=== PATIENT | female | born 1945 | race Caucasian/White ===

== ENCOUNTER 2024-08-03 13:46 | Emergency (ER) | payer MEDICARE ==
--- OUTSIDE RECORDS SUMMARY | 2024-08-03 13:51 | XMS REPORT | Continuity of Care Document ---
Author Name Unknown Address [address] [facility] [address] [place] [address] [facility] Address [address] [facility] [address] [place] [address] Care Team Providers Care Irrigation Foreman Name Role Phone Em Jones Attending Clinician Unavailable Loren Mejias Attending Clinician Unavailable Miller_S_AH Attending Clinician Unavailable Mireya-Mbayo_A_AH Attending Clinician Unavailable Miller_S_AH Admitting Clinician Unavailable Mireya-Mbayo_A_AH Admitting Clinician Unavailable Payers Payer Name Policy Type Policy Number Effective Date Expirati on Date Source [facility] (MEDICARE REPLACEMENT HMO) [id number] 00:00:00 [place] [id number] 2020 00:00:00 [facility]PLAC[facility]/ADVAN TAGE - HMO) [id number] 2019 00:00:00 Problems Condition Name Condition Details Condition Category Status Onset Date Resolution Date Last Treatment Date Treating Clinician Comments Source 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 Type 2 diabetes mellitus with hyperglyce corine, without long-term current use of insulin Problem [facility] [id number] 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 with other complicati ons Problem [facility] [id number] Restless legs syndrome (RLS) Problem [facility] Chronic kidney disease stage 3B (disorder) Stage 3b chronic kidney disease Problem [facility] [id number] BMI 38.0-38.9, adult Problem [facility] Flu vaccine needed Flu vaccine need Problem [facility] [id number] +5th digit eff 08/18/20*CK D (chronic kidney disease) stage 3, GFR 30-59 ml/min Problem [facility] Hypothyroi dism Hypothyroi dism Problem [facility] Screening for osteoporos is Screening for osteoporos is Problem [facility] Obesity Obesity Problem [facility] Asthma Asthma Problem [facility] Hypertensi on Hypertensi on Problem [facility] COPD - Chronic obstructiv e pulmonary disease COPD (chronic obstructiv e pulmonary disease) Problem [facility] Influenza vaccinatio n Influenza vaccinatio n administer ed at current visit Problem [facility] Renal insufficie ncy syndrome Renal insufficie ncy syndrome Problem [facility] [id number] Seasonal allergic rhinitis due to pollen Problem [facility] [id number] PAD (periphera l artery disease) Problem [facility] Allergic arthritis Allergic arthritis Problem [facility] Hyperlipid emia Hyperlipid emia Problem [facility] [id number] Mild intermitte nt asthma without complicati on Problem [facility] [id number] Needs flu shot Problem [facility] [id number] Paresthesi a of skin Problem [facility] [id number] Mixed hyperlipid emia Problem [facility] Allergies, Adverse Reactions, Alerts Allergy Name Allergy Type Status Severity Reaction(s) Onset Date Inactive Date Treating Clinician Comments Source 463 Drug allergy Active Unknown [facility] Social History Social Habit Start Date Stop Date Quantity Comments Source History of Tobacco Use [facility] Sex Assigned At [facility] Smoking Status Start Date Stop Date Source Never Smoker [facility] Medications Ordered Medication Name Filled Medication Name Start Date Stop Date Current Medication? Ordering Clinician Indication Dosage Frequency Signature (SIG) Comments Components Source Montelukast Sodium 10 MG Montelukast Sodium 10 MG 1- 00:00: 00 No 1{table t} QD Montelukas t Sodium 10 MG rOPINIRole HCl 0.5 MG rOPINIRole HCl 0.5 MG - 00:00: 00 No QD rOPINIRole HCl 0.5 MG Aspirin EC 81 MG Aspirin EC 81 MG No 1{table t} QD Aspirin EC 81 MG Triamcinolo ne Acetonide 0.1 % Triamcinolo ne Acetonide 0.1 % No 1{appli cation_ to_affe cted_ar ea} BID Triamcinol one Acetonide 0.1 % Albuterol Sulfate (2.5 MG/3ML) 0.083% Albuterol Sulfate (2.5 MG/3ML) 0.083% No 3{ml} QID Albuterol Sulfate (2.5 MG/3ML) 0.083% Rosuvastati n Calcium 5 MG Rosuvastati n Calcium 5 MG No 1{table t} Rosuvastat in Calcium 5 MG Xopenex HFA 45 MCG/ACT Xopenex HFA 45 MCG/ACT No 2{puff_ as_need ed} 6xD Xopenex HFA 45 MCG/ACT Telmisartan 40 MG Telmisartan 40 MG No 1{table t} QD Telmisarta n 40 MG Synthroid 88 MCG Synthroid 88 MCG No QD Synthroid 88 MCG Nystatin 850644 UNIT/GM Nystatin 008099 UNIT/GM No Nystatin 662803 UNIT/GM Comp Air Compressor Nebulizer - Comp Air Compressor Nebulizer - No Comp Air Compressor Nebulizer - Symbicort 160-4.5 MCG/ACT Symbicort 160-4.5 MCG/ACT No 2{puffs } BID Symbicort 160-4.5 MCG/ACT Immunizations Ordered Immunization Name Filled Immunization Name Date Status Comments Source FLUZONE HIGH DOSE OVER 65 FLUZONE HIGH DOSE OVER 65 2022-10-04 09:31:00 [facility] FLUZONE HIGH DOSE OVER 65 FLUZONE HIGH DOSE OVER 65 2022-10-04 09:31:00 Completed [facility] Moderna COVID-19 Vaccine (Low Dose Booster) Moderna COVID-19 Vaccine (Low Dose Booster) 2021-11-01 10:28:00 Completed [facility] Moderna COVID-19 Vaccine (Low Dose Booster) Moderna COVID-19 Vaccine (Low Dose Booster) 2021-11-01 10:28:00 Completed [facility] Moderna COVID-19 Vaccine (Low Dose Booster) Moderna COVID-19 Vaccine (Low Dose Booster) 2021-11-01 10:28:00 Completed [facility] Moderna COVID-19 Vaccine (Low Dose Booster) Moderna COVID-19 Vaccine (Low Dose Booster) 2021-11-01 10:28:00 Completed [facility] Moderna COVID-19 Vaccine (Low Dose Booster) Moderna COVID-19 Vaccine (Low Dose Booster) 2021-11-01 10:28:00 Completed [facility] Moderna COVID-19 Vaccine (Low Dose Booster) Moderna COVID-19 Vaccine (Low Dose Booster) 2021-11-01 10:28:00 Completed [facility] Moderna COVID-19 Vaccine (Low Dose Booster) Moderna COVID-19 Vaccine (Low Dose Booster) 2021-11-01 10:28:00 Completed [facility] Moderna COVID-19 Vaccine (Low Dose Booster) Moderna COVID-19 Vaccine (Low Dose Booster) 2021-11-01 10:28:00 Completed [facility] Moderna COVID-19 Vaccine (Low Dose Booster) Moderna COVID-19 Vaccine (Low Dose Booster) 2021-11-01 10:28:00 Completed [facility] Moderna COVID-19 Vaccine (Low Dose Booster) Moderna COVID-19 Vaccine (Low Dose Booster) 2021-11-01 10:28:00 Completed [facility] FLUZONE HIGH DOSE OVER 65 FLUZONE HIGH DOSE OVER 65 2021-10-20 13:26:00 Completed [facility] FLUZONE HIGH DOSE OVER 65 FLUZONE HIGH DOSE OVER 65 2021-10-20 13:26:00 Completed [facility] FLUZONE HIGH DOSE OVER 65 FLUZONE HIGH DOSE OVER 65 2021-10-20 13:26:00 Completed [facility] FLUZONE HIGH DOSE OVER 65 FLUZONE HIGH DOSE OVER 65 2021-10-20 13:26:00 Completed [facility] FLUZONE HIGH DOSE OVER 65 FLUZONE HIGH DOSE OVER 65 2021-10-20 13:26:00 Completed [facility] FLUZONE HIGH DOSE OVER 65 FLUZONE HIGH DOSE OVER 65 2021-10-20 13:26:00 Completed [facility] FLUZONE HIGH DOSE OVER 65 FLUZONE HIGH DOSE OVER 65 2021-10-20 13:26:00 Completed [facility] FLUZONE HIGH DOSE OVER 65 FLUZONE HIGH DOSE OVER 65 2021-10-20 13:26:00 Completed [facility] FLUZONE HIGH DOSE OVER 65 FLUZONE HIGH DOSE OVER 65 2021-10-20 13:26:00 Completed [facility] FLUZONE HIGH DOSE OVER 65 FLUZONE HIGH DOSE OVER 65 2021-10-20 13:26:00 Completed [facility] FLUZONE HIGH DOSE OVER 65 FLUZONE HIGH DOSE OVER 65 2021-10-20 13:26:00 Completed [facility] FLUZONE HIGH DOSE OVER 65 FLUZONE HIGH DOSE OVER 65 2021-10-20 13:26:00 Completed [facility] COVID-19 Vaccine (Sonja) COVID-19 Vaccine (Sonja) 2021-01-27 15:05:00 Completed [facility] COVID-19 Vaccine (Sonja) COVID-19 Vaccine (Sonja) 2021-01-27 15:05:00 Completed [facility] COVID-19 Vaccine (Sonja) COVID-19 Vaccine (Sonja) 2021-01-27 15:05:00 Completed [facility] COVID-19 Vaccine (Sonja) COVID-19 Vaccine (Sonja) 2021-01-27 15:05:00 Completed [facility] COVID-19 Vaccine (Sonja) COVID-19 Vaccine (Sonja) 2021-01-27 15:05:00 Completed [facility] COVID-19 Vaccine (Sonja) COVID-19 Vaccine (Sonja) 2021-01-27 15:05:00 Completed [facility] COVID-19 Vaccine (Sonja) COVID-19 Vaccine (Sonja) 2021-01-27 15:05:00 Completed [facility] COVID-19 Vaccine (Sonja) COVID-19 Vaccine (Sonja) 2021-01-27 15:05:00 Completed [facility] COVID-19 Vaccine (Sonja) COVID-19 Vaccine (Sonja) 2021-01-27 15:05:00 Completed [facility] COVID-19 Vaccine (Sonja) COVID-19 Vaccine (Sonja) 2021-01-27 15:05:00 Completed [facility] COVID-19 Vaccine (Sonja) COVID-19 Vaccine (Sonja) 2021-01-27 15:05:00 Completed [facility] COVID-19 Vaccine (Sonja) COVID-19 Vaccine (Sonja) 2021-01-27 15:05:00 Completed [facility] FluAD FluAD 2020-09-08 10:07:00 Completed [facility] FluAD FluAD 2020-09-08 10:07:00 Completed [facility] FluAD FluAD 2020-09-08 10:07:00 Completed [facility] FluAD FluAD 2020-09-08 10:07:00 Completed [facility] FluAD FluAD 2020-09-08 10:07:00 Completed [facility] FluAD FluAD 2020-09-08 10:07:00 Completed [facility] FluAD FluAD 2020-09-08 10:07:00 Completed [facility] FluAD FluAD 2020-09-08 10:07:00 Completed [facility] FluAD FluAD 2020-09-08 10:07:00 Completed [facility] FluAD FluAD 2020-09-08 10:07:00 Completed [facility] FluAD FluAD 2020-09-08 10:07:00 Completed [facility] FluAD FluAD 2020-09-08 10:07:00 Completed [facility] COVID-19 Vaccine (Sonja) COVID-19 Vaccine (Sonja) Unknown Completed [facility] FluAD FluAD Unknown Completed [facility] FLUZONE HIGH DOSE OVER 65 FLUZONE HIGH DOSE OVER 65 Unknown Completed [facility] FLUZONE HIGH DOSE OVER 65 FLUZONE HIGH DOSE OVER 65 Unknown Completed [facility] Fluad (aIIV4) - SDS - 0.5mL Fluad (aIIV4) - SDS - 0.5mL Unknown Completed [facility] MODERNA COVID-19 VACCINE (LOW DOSE BOOSTER) MODERNA COVID-19 VACCINE (LOW DOSE BOOSTER) Unknown Completed [facility] COVID-19 Vaccine (Sonja) COVID-19 Vaccine (Sonja) Unknown Completed [facility] FluAD FluAD Unknown Completed [facility] FLUZONE HIGH DOSE OVER 65 FLUZONE HIGH DOSE OVER 65 Unknown Completed [facility] FLUZONE HIGH DOSE OVER 65 FLUZONE HIGH DOSE OVER 65 Unknown Completed [facility] Moderna COVID-19 Vaccine (Low Dose Booster) Moderna COVID-19 Vaccine (Low Dose Booster) Unknown Completed [facility] COVID-19 Vaccine (Sonja) COVID-19 Vaccine (Sonja) Unknown Completed [facility] FluAD FluAD Unknown Completed [facility] FLUZONE HIGH DOSE OVER 65 FLUZONE HIGH DOSE OVER 65 Unknown Completed [facility] FLUZONE HIGH DOSE OVER 65 FLUZONE HIGH DOSE OVER 65 Unknown Completed [facility] Moderna COVID-19 Vaccine (Low Dose Booster) Moderna COVID-19 Vaccine (Low Dose Booster) Unknown Completed [facility] COVID-19 Vaccine (Sonja) COVID-19 Vaccine (Sonja) Unknown Completed [facility] FluAD FluAD Unknown Completed [facility] FLUZONE HIGH DOSE OVER 65 FLUZONE HIGH DOSE OVER 65 Unknown Completed [facility] FLUZONE HIGH DOSE OVER 65 FLUZONE HIGH DOSE OVER 65 Unknown Completed [facility] FluAD Quad SD FluAD Quad SD Unknown Completed [facility] Moderna COVID-19 Vaccine (Low Dose Booster) Moderna COVID-19 Vaccine (Low Dose Booster) Unknown Completed [facility] COVID-19 Vaccine (Sonja) COVID-19 Vaccine (Sonja) Unknown Completed [facility] FluAD FluAD Unknown Completed [facility] FLUZONE HIGH DOSE OVER 65 FLUZONE HIGH DOSE OVER 65 Unknown Completed [facility] FLUZONE HIGH DOSE OVER 65 FLUZONE HIGH DOSE OVER 65 Unknown Completed [facility] FluAD Quad SD FluAD Quad SD Unknown Completed [facility] Moderna COVID-19 Vaccine (Low Dose Booster) Moderna COVID-19 Vaccine (Low Dose Booster) Unknown Completed [facility] COVID-19 Vaccine (Sonja) COVID-19 Vaccine (Sonja) Unknown Completed [facility] FluAD FluAD Unknown Completed [facility] FLUZONE HIGH DOSE OVER 65 FLUZONE HIGH DOSE OVER 65 Unknown Completed [facility] FLUZONE HIGH DOSE OVER 65 FLUZONE HIGH DOSE OVER 65 Unknown Completed [facility] FluAD Quad SD FluAD Quad SD Unknown Completed [facility] Moderna COVID-19 Vaccine (Low Dose Booster) Moderna COVID-19 Vaccine (Low Dose Booster) Unknown Completed [facility] COVID-19 Vaccine (Sonja) COVID-19 Vaccine (Sonja) Unknown Completed [facility] FluAD FluAD Unknown Completed [facility] FLUZONE HIGH DOSE OVER 65 FLUZONE HIGH DOSE OVER 65 Unknown Completed [facility] FLUZONE HIGH DOSE OVER 65 FLUZONE HIGH DOSE OVER 65 Unknown Completed [facility] Fluad (aIIV4) - SDS - 0.5mL Fluad (aIIV4) - SDS - 0.5mL Unknown Completed [facility] Moderna COVID-19 Vaccine (Low Dose Booster) Moderna COVID-19 Vaccine (Low Dose Booster) Unknown Completed [facility] COVID-19 Vaccine (Sonja) COVID-19 Vaccine (Sonja) Unknown Completed [facility] FluAD FluAD Unknown Completed [facility] FLUZONE HIGH DOSE OVER 65 FLUZONE HIGH DOSE OVER 65 Unknown Completed [facility] FLUZONE HIGH DOSE OVER 65 FLUZONE HIGH DOSE OVER 65 Unknown Completed [facility] Fluad (aIIV4) - SDS - 0.5mL Fluad (aIIV4) - SDS - 0.5mL Unknown Completed [facility] Moderna COVID-19 Vaccine (Low Dose Booster) Moderna COVID-19 Vaccine (Low Dose Booster) Unknown Completed [facility] COVID-19 Vaccine (Sonja) COVID-19 Vaccine (Sonja) Unknown Completed [facility] FluAD FluAD Unknown Completed [facility] FLUZONE HIGH DOSE OVER 65 FLUZONE HIGH DOSE OVER 65 Unknown Completed [facility] FLUZONE HIGH DOSE OVER 65 FLUZONE HIGH DOSE OVER 65 Unknown Completed [facility] Fluad (aIIV4) - SDS - 0.5mL Fluad (aIIV4) - SDS - 0.5mL Unknown Completed [facility] Moderna COVID-19 Vaccine (Low Dose Booster) Moderna COVID-19 Vaccine (Low Dose Booster) Unknown Completed [facility] COVID-19 Vaccine (Sonja) COVID-19 Vaccine (Sonja) Unknown Completed [facility] FluAD FluAD Unknown Completed [facility] FLUZONE HIGH DOSE OVER 65 FLUZONE HIGH DOSE OVER 65 Unknown Completed [facility] FLUZONE HIGH DOSE OVER 65 FLUZONE HIGH DOSE OVER 65 Unknown Completed [facility] Fluad (aIIV4) - SDS - 0.5mL Fluad (aIIV4) - SDS - 0.5mL Unknown Completed [facility] Moderna COVID-19 Vaccine (Low Dose Booster) Moderna COVID-19 Vaccine (Low Dose Booster) Unknown Completed [facility] COVID-19 Vaccine (Sonja) COVID-19 Vaccine (Sonja) Unknown Completed [facility] FluAD FluAD Unknown Completed [facility] FLUZONE HIGH DOSE OVER 65 FLUZONE HIGH DOSE OVER 65 Unknown Completed [facility] FLUZONE HIGH DOSE OVER 65 FLUZONE HIGH DOSE OVER 65 Unknown Completed [facility] Fluad (aIIV4) - SDS - 0.5mL Fluad (aIIV4) - SDS - 0.5mL Unknown Completed [facility] Moderna COVID-19 Vaccine (Low Dose Booster) Moderna COVID-19 Vaccine (Low Dose Booster) Unknown Completed [facility] COVID-19 Vaccine (Sonja) COVID-19 Vaccine (Sonja) Unknown Completed [facility] FluAD FluAD Unknown Completed [facility] FLUZONE HIGH DOSE OVER 65 FLUZONE HIGH DOSE OVER 65 Unknown Completed [facility] FLUZONE HIGH DOSE OVER 65 FLUZONE HIGH DOSE OVER 65 Unknown Completed [facility] Fluad (aIIV4) - SDS - 0.5mL Fluad (aIIV4) - SDS - 0.5mL Unknown Completed [facility] MODERNA COVID-19 VACCINE (LOW DOSE BOOSTER) MODERNA COVID-19 VACCINE (LOW DOSE BOOSTER) Unknown Completed [facility] COVID-19 Vaccine (Sonja) COVID-19 Vaccine (Sonja) Unknown Completed [facility] FluAD FluAD Unknown Completed [facility] FLUZONE HIGH DOSE OVER 65 FLUZONE HIGH DOSE OVER 65 Unknown Completed [facility] FLUZONE HIGH DOSE OVER 65 FLUZONE HIGH DOSE OVER 65 Unknown Completed [facility] Fluad (aIIV4) - SDS - 0.5mL Fluad (aIIV4) - SDS - 0.5mL Unknown Completed [facility] MODERNA COVID-19 VACCINE (LOW DOSE BOOSTER) MODERNA COVID-19 VACCINE (LOW DOSE BOOSTER) Unknown Completed [facility] COVID-19 Vaccine (Sonja) COVID-19 Vaccine (Sonja) Unknown Completed [facility] FluAD FluAD Unknown Completed [facility] FLUZONE HIGH DOSE OVER 65 FLUZONE HIGH DOSE OVER 65 Unknown Completed [facility] FLUZONE HIGH DOSE OVER 65 FLUZONE HIGH DOSE OVER 65 Unknown Completed [facility] Fluad (aIIV4) - SDS - 0.5mL Fluad (aIIV4) - SDS - 0.5mL Unknown Completed [facility] MODERNA COVID-19 VACCINE (LOW DOSE BOOSTER) MODERNA COVID-19 VACCINE (LOW DOSE BOOSTER) Unknown Completed [facility] COVID-19 Vaccine (Sonja) COVID-19 Vaccine (Sonja) Unknown Completed [facility] FluAD FluAD Unknown Completed [facility] FLUZONE HIGH DOSE OVER 65 FLUZONE HIGH DOSE OVER 65 Unknown Completed [facility] FLUZONE HIGH DOSE OVER 65 FLUZONE HIGH DOSE OVER 65 Unknown Completed [facility] Fluad (aIIV4) - SDS - 0.5mL Fluad (aIIV4) - SDS - 0.5mL Unknown Completed [facility] MODERNA COVID-19 VACCINE (LOW DOSE BOOSTER) MODERNA COVID-19 VACCINE (LOW DOSE BOOSTER) Unknown Completed [facility] COVID-19 Vaccine (Sonja) COVID-19 Vaccine (Sonja) Unknown Completed [facility] FluAD FluAD Unknown Completed [facility] FLUZONE HIGH DOSE OVER 65 FLUZONE HIGH DOSE OVER 65 Unknown Completed [facility] FLUZONE HIGH DOSE OVER 65 FLUZONE HIGH DOSE OVER 65 Unknown Completed [facility] Fluad (aIIV4) - SDS - 0.5mL Fluad (aIIV4) - SDS - 0.5mL Unknown Completed [facility] MODERNA COVID-19 VACCINE (LOW DOSE BOOSTER) MODERNA COVID-19 VACCINE (LOW DOSE BOOSTER) Unknown Completed [facility] COVID-19 Vaccine (Sonja) COVID-19 Vaccine (Sonja) Unknown Completed [facility] FluAD FluAD Unknown Completed [facility] FLUZONE HIGH DOSE OVER 65 FLUZONE HIGH DOSE OVER 65 Unknown Completed [facility] FLUZONE HIGH DOSE OVER 65 FLUZONE HIGH DOSE OVER 65 Unknown Completed [facility] Fluad (aIIV4) - SDS - 0.5mL Fluad (aIIV4) - SDS - 0.5mL Unknown Completed [facility] MODERNA COVID-19 VACCINE (LOW DOSE BOOSTER) MODERNA COVID-19 VACCINE (LOW DOSE BOOSTER) Unknown Completed [facility] Vital Signs Vital Name Observation Time Observation Value Comments S ource height 2024-07-22 09:40:00 60.5 [in_i] Comm on [facility] weight 2024-07-22 09:40:00 156 [lb_av] Comm on [facility] temperature 2024-07-22 09:40:00 97.8 [degF] Com mon [facility] bmi 2024-07-22 09:40:00 29.96 kg/m2 Comm on [facility] oximetry 2024-07-22 09:40:00 98 % Commo n [facility] respiratory rate 2024-07-22 09:40:00 16 /min Common [facility] blood pressure systolic 2024-07-22 09:40:00 128 mm[facility]Hg[facility] pressure diastolic 2024-07-22 09:40:00 64 mm[Hg] [facility] height 2024-06-01 08:20:00 60.5 [in_i] Comm on [facility] weight 2024-06-01 08:20:00 158.6 [lb_av] Co mmon [facility] temperature 2024-06-01 08:20:00 97.2 [degF] Com mon [facility] bmi 2024-06-01 08:20:00 30.46 kg/m2 Comm on [facility] oximetry 2024-06-01 08:20:00 96 % Commo n [facility] respiratory rate 2024-06-01 08:20:00 16 /min [facility] blood pressure systolic 2024-06-01 08:20:00 124 mm[Hg] [facility] blood pressure diastolic 2024-06-01 08:20:00 58 mm[Hg] Common [facility] height 2024-04-08 09:00:00 60.5 [in_i] Comm on [facility] weight 2024-04-08 09:00:00 156 [lb_av] Comm on [facility] temperature 2024-04-08 09:00:00 97.6 [degF] Com mon [facility] bmi 2024-04-08 09:00:00 29.96 kg/m2 Comm on [facility] oximetry 2024-04-08 09:00:00 98 % Commo n [facility] respiratory rate 2024-04-08 09:00:00 16 /min [facility] blood pressure systolic 2024-04-08 09:00:00 130 mm[Hg] [facility] blood pressure diastolic 2024-04-08 09:00:00 72 mm[Hg] Common [facility] height 2024-02-18 08:20:00 60.5 [in_i] Comm on [facility] weight 2024-02-18 08:20:00 154 [lb_av] Comm on [facility] temperature 2024-02-18 08:20:00 97.6 [degF] Com mon [facility] bmi 2024-02-18 08:20:00 29.58 kg/m2 Comm on [facility] oximetry 2024-02-18 08:20:00 96 % Commo n [facility] respiratory rate 2024-02-18 08:20:00 16 /min [facility] blood pressure systolic 2024-02-18 08:20:00 136 mm[Hg] Common [facility] blood pressure diastolic 2024-02-18 08:20:00 74 mm[Hg] Common [facility] height 2024-02-11 09:20:00 60.5 [in_i] Comm on [facility] weight 2024-02-11 09:20:00 160 [lb_av] Comm on [facility] temperature 2024-02-11 09:20:00 97.2 [degF] Com mon [facility] bmi 2024-02-11 09:20:00 30.73 kg/m2 Comm on [facility] oximetry 2024-02-11 09:20:00 96 % Commo n [facility] respiratory rate 2024-02-11 09:20:00 17 /min Common [facility] blood pressure systolic 2024-02-11 09:20:00 144 mm[Hg] [facility] diastolic 2024-02-11 09:20:00 78 mm[Hg] Common [facility] height 2024-01-09 09:00:00 60.5 [in_i] Comm on [facility] weight 2024-01-09 09:00:00 159 [lb_av] Comm on [facility] temperature 2024-01-09 09:00:00 97.1 [degF] Com [facility] bmi 2024-01-09 09:00:00 30.54 kg/m2 Comm on [facility] oximetry 2024-01-09 09:00:00 98 % Commo n [facility] respiratory rate 2024-01-09 09:00:00 16 /min [facility] blood pressure systolic 2024-01-09 09:00:00 137 mm[Hg] [facility] blood pressure diastolic 2024-01-09 09:00:00 74 mm[Hg] [facility] height 2023-11-19 09:00:00 55 [in_i] Commo n [facility] weight 2023-11-19 09:00:00 156.2 [lb_av] Co mmon [facility] temperature 2023-11-19 09:00:00 97.1 [degF] Com [facility] bmi 2023-11-19 09:00:00 36.3 kg/m2 Commo n [facility] oximetry 2023-11-19 09:00:00 97 % Commo n [facility] respiratory rate 2023-11-19 09:00:00 16 /min Common [facility] blood pressure systolic 2023-11-19 09:00:00 130 mm[Hg] Common [facility] blood pressure diastolic 2023-11-19 09:00:00 72 mm[Hg] Common [facility] height 2023-11-19 09:00:00 55 [in_i] Commo n [facility] weight 2023-11-19 09:00:00 156.2 [lb_av] Co mmon [facility] temperature 2023-11-19 09:00:00 97.1 [degF] Com mon [facility] bmi 2023-11-19 09:00:00 36.3 kg/m2 Commo n [facility] oximetry 2023-11-19 09:00:00 97 % Commo n [facility] respiratory rate 2023-11-19 09:00:00 16 /min Common [facility] blood pressure systolic 2023-11-19 09:00:00 130 mm[Hg] [facility] blood pressure diastolic 2023-11-19 09:00:00 72 mm[Hg] Common [facility] height 2023-09-20 09:00:00 55 [in_i] Commo n [facility] weight 2023-09-20 09:00:00 150 [lb_av] Comm on [facility] temperature 2023-09-20 09:00:00 97.2 [degF] Com [facility] bmi 2023-09-20 09:00:00 34.86 kg/m2 Comm on [facility] oximetry 2023-09-20 09:00:00 96 % Commo n [facility] respiratory rate 2023-09-20 09:00:00 16 /min [facility] blood pressure systolic 2023-09-20 09:00:00 126 mm[Hg] [facility] blood pressure diastolic 2023-09-20 09:00:00 82 mm[Hg] [facility] height 2023-06-21 09:00:00 55 [in_i] Commo n [facility] weight 2023-06-21 09:00:00 152.2 [lb_av] Co mmon [facility] temperature 2023-06-21 09:00:00 97.2 [degF] Com [facility] bmi 2023-06-21 09:00:00 35.37 kg/m2 Comm on [facility] oximetry 2023-06-21 09:00:00 98 % Commo n [facility] respiratory rate 2023-06-21 09:00:00 16 /min Common [facility] blood pressure systolic 2023-06-21 09:00:00 121 mm[Hg] [facility] blood pressure diastolic 2023-06-21 09:00:00 73 mm[Hg] [facility] height 2023-03-20 09:20:00 55 [in_i] Commo n [facility] weight 2023-03-20 09:20:00 161 [lb_av] Comm on [facility] temperature 2023-03-20 09:20:00 97.3 [degF] Com [facility] bmi 2023-03-20 09:20:00 37.42 kg/m2 Comm on [facility] oximetry 2023-03-20 09:20:00 98 % Commo n [facility] respiratory rate 2023-03-20 09:20:00 16 /min Common [facility] blood pressure systolic 2023-03-20 09:20:00 134 mm[Hg] [facility] blood pressure diastolic 2023-03-20 09:20:00 80 mm[Hg] [facility] height 2023-02-11 08:20:00 55 [in_i] Commo n [facility] weight 2023-02-11 08:20:00 165.2 [lb_av] Co mmon [facility] temperature 2023-02-11 08:20:00 98.2 [degF] Com [facility] bmi 2023-02-11 08:20:00 38.39 kg/m2 Comm on [facility] oximetry 2023-02-11 08:20:00 97 % Commo n [facility] respiratory rate 2023-02-11 08:20:00 16 /min Common [facility] blood pressure systolic 2023-02-11 08:20:00 138 mm[Hg] Common [facility] blood pressure diastolic 2023-02-11 08:20:00 75 mm[Hg] [facility] height 2023-02-11 08:40:00 55 [in_i] Commo n [facility] weight 2023-02-11 08:40:00 165.2 [lb_av] Co mmon [facility] temperature 2023-02-11 08:40:00 98.1 [degF] Com mon [facility] bmi 2023-02-11 08:40:00 38.39 kg/m2 Comm on [facility] oximetry 2023-02-11 08:40:00 97 % Commo n [facility] respiratory rate 2023-02-11 08:40:00 16 /min Common [facility] blood pressure systolic 2023-02-11 08:40:00 138 mm[Hg] [facility] blood pressure diastolic 2023-02-11 08:40:00 75 mm[Hg] [facility] height 2022-10-30 09:40:00 55 [in_i] Commo n [facility] weight 2022-10-30 09:40:00 166.6 [lb_av] Co mmon [facility] temperature 2022-10-30 09:40:00 97.1 [degF] Com mon [facility] bmi 2022-10-30 09:40:00 38.72 kg/m2 Comm on [facility] oximetry 2022-10-30 09:40:00 96 % Commo n [facility] respiratory rate 2022-10-30 09:40:00 16 /min [facility] blood pressure systolic 2022-10-30 09:40:00 137 mm[Hg] [facility] blood pressure diastolic 2022-10-30 09:40:00 65 mm[Hg] [facility] height 2022-07-27 08:40:00 55 [in_i] Commo n [facility] weight 2022-07-27 08:40:00 164.4 [lb_av] Co mmon [facility] temperature 2022-07-27 08:40:00 96.4 [degF] Com mon [facility] bmi 2022-07-27 08:40:00 38.21 kg/m2 Comm on [facility] oximetry 2022-07-27 08:40:00 98 % Commo n [facility] respiratory rate 2022-07-27 08:40:00 16 /min [facility] blood pressure systolic 2022-07-27 08:40:00 137 mm[Hg] [facility] blood pressure diastolic 2022-07-27 08:40:00 67 mm[Hg] [facility] height 2022-04-26 08:40:00 55 [in_i] Commo n [facility] weight 2022-04-26 08:40:00 164 [lb_av] Comm on [facility] temperature 2022-04-26 08:40:00 97.8 [degF] Com mon [facility] bmi 2022-04-26 08:40:00 38.11 kg/m2 Comm on [facility] oximetry 2022-04-26 08:40:00 97 % Commo n [facility] respiratory rate 2022-04-26 08:40:00 20 /min Common [facility] blood pressure systolic 2022-04-26 08:40:00 124 mm[Hg] [facility] blood pressure diastolic 2022-04-26 08:40:00 74 mm[Hg] [facility] height 2022-01-22 08:40:00 55 [in_i] Commo n [facility] weight 2022-01-22 08:40:00 164.4 [lb_av] Co on [facility] temperature 2022-01-22 08:40:00 97.4 [degF] Com [facility] bmi 2022-01-22 08:40:00 38.21 kg/m2 Comm on [facility] oximetry 2022-01-22 08:40:00 96 % Commo n [facility] respiratory rate 2022-01-22 08:40:00 18 /min Common [facility] blood pressure systolic 2022-01-22 08:40:00 121 mm[Hg] [facility] blood pressure diastolic 2022-01-22 08:40:00 76 mm[Hg] Common [facility] height 2021-10-20 13:00:00 55.00 [in_i] Com [facility] weight 2021-10-20 13:00:00 160.0 [lb_av] Co on [facility] temperature 2021-10-20 13:00:00 97.0 [degF] Com [facility] bmi 2021-10-20 13:00:00 37.18 kg/m2 Comm on [facility] oximetry 2021-10-20 13:00:00 99 % Commo n [facility] respiratory rate 2021-10-20 13:00:00 20 /min Common [facility] blood pressure systolic 2021-10-20 13:00:00 110 mm[Hg] Common [facility] blood pressure diastolic 2021-10-20 13:00:00 70 mm[Hg] Common [facility] height 2021-10-20 13:40:00 55 [in_i] Commo n [facility] weight 2021-10-20 13:40:00 160 [lb_av] Comm on [facility] temperature 2021-10-20 13:40:00 97 [degF] Comm on [facility] bmi 2021-10-20 13:40:00 37.18 kg/m2 Comm on [facility] oximetry 2021-10-20 13:40:00 99 % Commo n [facility] blood pressure systolic 2021-10-20 13:40:00 110 mm[Hg] Common [facility] blood pressure diastolic 2021-10-20 13:40:00 70 mm[Hg] [facility] Encounters Start Date/Time End Date/Time Encounter Type Admission Type Attending [facility] Care Facility Care Department Encounter ID Source 2024-07-21 09:23:00 Outpatient JonesEm STLMLC STLMLC [id number] [facility] 2024-05-28 14:34:00 Outpatient Jones Em STLMLC STLMLC [id number] [facility] 2024-04-06 09:29:00 Outpatient Jones Em STLMLC STLMLC [id number] [facility] 2024-02-17 13:45:00 Outpatient Jones Em STLMLC STLMLC [id number] [facility] 2024-01-07 08:29:00 Outpatient Jones Em STLMLC STLMLC [id number] [facility] 2023-11-19 08:28:00 Outpatient Jones, Em STLMLC STLMLC [id number] [facility] 2023-09-18 10:47:00 Outpatient Jones, Em STLMLC STLMLC [id number] [facility] 2023-06-20 09:17:00 Outpatient Jones, Em STLMLC STLMLC [id number] [facility] 2023-02-07 08:52:00 Outpatient Jones, Em STLMLC STLMLC [id number] [facility] 2023-02-01 09:01:01 Outpatient Em Jones STLMLC STLMLC [id number] [facility] 2022-12-25 14:13:00 Outpatient Em Jones STLMLC STLMLC [id number] [facility] 2022-10-26 08:29:00 Outpatient Mejias, Na STLMLC STLMLC [id number] [facility] 2022-07-25 08:54:00 Outpatient Mejias, Na STLMLC STLMLC [id number] [facility] 2022-05-31 14:07:00 Outpatient Mejias, Na STLMLC STLMLC [id number] [facility] 2022-04-24 13:35:00 Outpatient Mejias, Na STLMLC STLMLC [id number] [facility] 2022-01-19 09:48:01 Outpatient Mejias, Na STLMLC STLMLC [id number] [facility] 2021-12-13 14:25:12 Outpatient Mejias, Na STLMLC STLMLC [id number] [facility] 2021-12-13 13:49:08 Outpatient Mejias, Na STLMLC STLMLC [id number] [facility] 2021-12-13 13:17:09 Outpatient Mejias, Na STLMLC STLMLC [id number] [facility] 2021-12-13 12:40:47 Outpatient Mejias, Na STLMLC STLMLC [id number] [facility] 2021-12-13 12:39:46 Outpatient Mejias, Na STLMLC STLMLC [id number] [facility] 2021-12-13 12:26:18 Outpatient Mejias, Na STLMLC STLMLC [id number] [facility] 2021-12-13 12:25:12 Outpatient Mejias, Na STLMLC STLMLC [id number] [facility] 2021-12-13 12:14:04 Outpatient Mejias, Na STLMLC STLMLC [id number] [facility] 2021-12-13 12:09:50 Outpatient Mejias, Na STLMLC STLMLC [id number] [facility] 2021-12-13 11:47:11 Outpatient Mejias, Na STLMLC STLMLC [id number] [facility] 2021-12-13 11:27:12 Outpatient Mejias, Na STLMLC STLMLC [id number] [facility] 2021-12-13 11:16:33 Outpatient Mejias, Na STLMLC STLMLC [id number] [facility] 2024-07-22 00:00:00 2024-07-22 00:00:00 OFFICE VISIT ESTAB PT LEVEL 4 STLMLC STLMLC [id number] [facility] 2024-07-16 00:00:00 2024-07-16 00:00:00 (TEL) STLMLC STLMLC [id number] [facility] 2024-06-01 00:00:00 2024-06-01 00:00:00 OFFICE VISIT ESTAB PT LEVEL 4 STLMLC STLMLC [id number] [facility] 2024-04-08 00:00:00 2024-04-08 00:00:00 OFFICE VISIT ESTAB PT LEVEL 4 STLMLC STLMLC [id number] [facility] 2024-03-24 00:00:00 2024-03-24 00:00:00 (TEL) STLMLC STLMLC [id number] [facility] 2024-02-21 00:00:00 2024-02-21 00:00:00 (TEL) STLMLC STLMLC [id number] [facility] 2024-02-18 00:00:00 2024-02-18 00:00:00 OFFICE VISIT ESTAB PT LEVEL 3 STLMLC STLMLC [id number] [facility] 2024-02-11 00:00:00 2024-02-11 00:00:00 OFFICE VISIT ESTAB PT LEVEL 3 STLMLC STLMLC [id number] [facility] 2024-02-11 00:00:00 2024-02-11 00:00:00 (TEL) STLMLC STLMLC [id number] [facility] 2024-01-09 00:00:00 2024-01-09 00:00:00 OFFICE VISIT ESTAB PT LEVEL 4 STLMLC STLMLC [id number] [facility] 2023-11-19 00:00:00 2023-11-19 00:00:00 OFFICE VISIT ESTAB PT LEVEL 4 STLMLC STLMLC [id number] [facility] 2023-11-19 00:00:00 2023-11-19 00:00:00 SUB ANNUAL [facility] VISIT STLMLC STLMLC [id number] [facility] 2023-09-20 00:00:00 2023-09-20 00:00:00 OFFICE VISIT ESTAB PT LEVEL 4 STLMLC STLMLC [id number] [facility] 2023-07-04 00:00:00 2023-07-04 00:00:00 (TEL) STLMLC STLMLC [id number] [facility] 2023-06-21 00:00:00 2023-06-21 00:00:00 OFFICE VISIT ESTAB PT LEVEL 4 STLMLC STLMLC [id number] [facility] 2023-05-07 00:00:00 2023-05-07 00:00:00 (TEL) STLMLC STLMLC [id number] [facility] 2023-03-22 00:00:00 2023-03-22 00:00:00 Outpatient DMG DM [id number] [facility] 2023-03-20 00:00:00 2023-03-20 00:00:00 OFFICE VISIT ESTAB PT LEVEL 4 STLMLC STLMLC [id number] [facility] 2023-02-27 00:00:00 2023-02-27 00:00:00 (TEL) STLMLC STLMLC [id number] [facility] 2023-02-11 00:00:00 2023-02-11 00:00:00 OFFICE VISIT ESTAB PT LEVEL 4 STLMLC STLMLC [id number] [facility] 2023-02-11 00:00:00 2023-02-11 00:00:00 SUB ANNUAL [facility] VISIT STLMLC STLMLC [id number] [facility] 2022-10-30 00:00:00 2022-10-30 00:00:00 OFFICE VISIT EST PT LEVEL 3 STLMLC STLMLC [id number] [facility] 2022-10-04 00:00:00 2022-10-04 00:00:00 (INJ) Injection STLMLC STLMLC [id number] [facility] 2022-09-19 00:00:00 2022-09-19 00:00:00 (TEL) STLMLC STLMLC [id number] [facility] 2022-09-18 00:00:00 2022-09-18 00:00:00 (TEL) STLMLC STLMLC [id number] [facility] 2022-09-17 00:00:00 2022-09-17 00:00:00 Outpatient DMG DM [id number] [facility] 2022-07-27 00:00:00 2022-07-27 00:00:00 OFFICE VISIT ESTAB PT LEVEL 4 STLMLC STLMLC [id number] [facility] 2022-04-26 00:00:00 2022-04-26 00:00:00 OFFICE VISIT ESTAB PT LEVEL 4 STLMLC STLMLC [id number] [facility] 2022-04-24 00:00:00 2022-04-24 00:00:00 (TEL) STLMLC STLMLC [id number] [facility] 2022-01-22 00:00:00 2022-01-22 00:00:00 OFFICE VISIT ESTAB PT LEVEL 4 STLMLC STLMLC [id number] [facility] 2021-12-06 00:00:00 2021-12-06 00:00:00 (TEL) STLMLC STLMLC [id number] [facility] 2021-11-01 00:00:00 2021-11-01 00:00:00 (COVID Inj) COVID Injection STLMLC STLMLC [id number] [facility] 2021-10-20 00:00:00 2021-10-20 00:00:00 SUB ANNUAL [facility] VISIT STLMLC STLMLC [id number] [facility] 2021-10-20 00:00:00 2021-10-20 00:00:00 OFFICE VISIT EST PT LEVEL 3 STLMLC STLMLC [id number] [facility] 2021-05-12 00:00:00 2021-05-12 00:00:00 Outpatient STLMLC STLMLC [id number] [facility] 2021-05-09 01:31:00 2021-05-09 01:31:00 Outpatient Miller_S_AH VFP VFP [id number] [facility] 2021-05-09 00:00:00 2021-05-09 00:00:00 Outpatient STLMLC STLMLC [id number] [facility] 2021-05-03 03:39:00 2021-05-03 03:39:00 Outpatient Mireya-Mbayo _A_AH VFP VFP [id number] [facility] 2021-04-06 09:56:00 2021-04-06 09:56:00 Outpatient Mireya-Mbayo _A_AH VFP VFP [id number] [facility] 2021-02-07 00:00:00 2021-02-07 00:00:00 Outpatient STLMLC STLMLC [id number] [facility] 2021-02-03 00:00:00 2021-02-03 00:00:00 Outpatient STLMLC STLMLC [id number] [facility] 2021-01-27 00:00:00 2021-01-27 00:00:00 Outpatient STLMLC STLMLC [id number] [facility] 2020-12-28 00:00:00 2020-12-28 00:00:00 Outpatient [facility]LMLC [facility]LMLC [id number] [facility] 2020-12-25 00:00:00 2020-12-25 00:00:00 Outpatient [facility]MLC [facility]LMLC [id number] [facility] 2020-12-15 00:00:00 2020-12-15 00:00:00 Outpatient STLMLC STLMLC [id number] [facility] 2020-11-04 00:00:00 2020-11-04 00:00:00 Outpatient STLMLC STLMLC [id number] [facility] 2020-09-08 00:00:00 2020-09-08 00:00:00 Outpatient STLMLC STLMLC [id number] [facility] 2020-08-09 00:00:00 2020-08-09 00:00:00 Outpatient STLMLC STLMLC [id number] [facility] 2020-05-09 08:00:00 2020-05-09 08:00:00 [address] [facility] [address] [facility] [id number] [facility] 2020-02-19 02:51:00 2020-02-19 02:51:00 Outpatient Mireya-Wm _A_AH VFP VFP [id number] [facility] 2020-02-04 13:20:00 2020-02-04 13:20:00 [address] [facility] [address] [facility] [id number] [facility] 2019-10-01 10:01:00 2019-10-01 10:01:00 [facility] [address] [facility] [id number] [facility] 2019-05-18 10:20:00 2019-05-18 10:20:00 [facility] [address] [facility] [place] [facility] [id number] [facility] 2019-01-29 10:00:00 2019-01-29 10:00:00 [facility] [address] [facility] [place] [facility] [id number] [facility] 2019-01-01 08:30:00 2019-01-01 08:30:00 [facility] [address] [facility] [place] [facility] [id number] [facility] 2018-12-03 13:54:00 2018-12-03 13:54:00 [facility] [facility] [address] [facility] [id number] [facility] 2018-05-23 14:51:00 2018-05-23 14:51:00 [facility] [address] [facility] [id number] [facility] 2018-05-23 10:08:00 2018-05-23 10:08:00 [facility] [place] [facility] [id number] [facility] Results Test Description Test Time Test Comments Results Result Co mments Source HEMOGLOBIN [id number] 00:00:00* Test Item Value Reference Range Interpretation Comme nts NUCLEATED RBCS (test code = 10118-4) 0.0 /100 WBC'S See_Comment [Automated message] The system which generated this result transmitted reference range: 0.0 /100 WBC'S. The reference range was not used to interpret this result as normal/abnormal. ABSOLUTE EOSINOPHILS (test code = 41214-9) 0.40 K/UL See_Comment [Automated message] The system which generated this result transmitted reference range: 0.00-0.50 K/UL. The reference range was not used to interpret this result as normal/abnormal. ABSOLUTE LYMPHOCYTES (test code = 19561-6) 3.34 K/UL See_Comment [Automated message] The system which generated this result transmitted reference range: 1.00-4.00 K/UL. The reference range was not used to interpret this result as normal/abnormal. ABSOLUTE MONOCYTES (test code = 08259-1) 0.40 K/UL See_Comment [Automated message] The system which generated this result transmitted reference range: 0.20-1.00 K/UL. The reference range was not used to interpret this result as normal/abnormal. ABSOLUTE NEUTROPHILS (test code = 30886-1) 2.36 K/UL See_Comment [Automated message] The system which generated this result transmitted reference range: 1.50-7.50 K/UL. The reference range was not used to interpret this result as normal/abnormal. BASOPHILS (test code = 44187-8) 0.6 % EOSINOPHILS (test code = 83146-8) 6.1 % HEMATOCRIT (test code = 07064-4) 39.5 % See_Comment [Automated messa ge] The system which generated this result transmitted reference range: 34.0-45.0 %. The reference range was not used to interpret this result as normal/abnormal. HEMOGLOBIN (test code = 718-7) 12.6 G/DL See_Comment [Automated messa ge] The system which generated this result transmitted reference range: 11.5-15.5 G/DL. The reference range was not used to interpret this result as normal/abnormal. LYMPHOCYTES (test code = 63860-5) 51.0 % MCH (test code = 49019-6) 27.8 PG See_Comment [Automated messa ge] The system which generated this result transmitted reference range: 25.0-33.0 PG. The reference range was not used to interpret this result as normal/abnormal. MCHC (test code = 71671-0) 31.9 G/DL See_Comment [Automated messa ge] The system which generated this result transmitted reference range: 31.0-36.0 G/DL. The reference range was not used to interpret this result as normal/abnormal. MCV (test code = 18182-3) 87.0 fL See_Comment [Automated messa ge] The system which generated this result transmitted reference range: 80.0-99.0 fL. The reference range was not used to interpret this result as normal/abnormal. MONOCYTES (test code = 37094-4) 6.1 % NEUTROPHILS (test code = 92949-0) 36.0 % PLATELET COUNT (test code = 39392-0) 308 K/UL See_Comment [Automated messa ge] The system which generated this result transmitted reference range: 130-400 K/UL. The reference range was not used to interpret this result as normal/abnormal. RBC (test code = 10075-6) 4.54 M/UL See_Comment [Automated [employer]] The system which generated this result transmitted reference range: 3.80-5.40 M/UL. The reference range was not used to interpret this result as normal/abnormal. RDW (test code = 96287-7) 18.4 % See_Comment H [Automated [employer]] The system which generated this result transmitted reference range: 11.5-15.0 %. The reference range was not used to interpret this result as normal/abnormal. WBC (test code = 82005-4) 6.6 K/UL See_Comment [Automated [employer]] The system which generated this result transmitted reference range: 3.5-11.0 K/UL. The reference range was not used to interpret this result as normal/abnormal. CALC LDL CHOL (test code = 44907-5) 71 MG/DL See_Comment [Automated [employer]] The system which generated this result transmitted reference range: <100 MG/DL. The reference range was not used to interpret this result as normal/abnormal. CHOLESTEROL (test code = 2093-3) 151 MG/DL See_Comment [Automated [employer]] The system which generated this result transmitted reference range: <200 MG/DL. The reference range was not used to interpret this result as normal/abnormal. HDL CHOLESTEROL (test code = 2085-9) 54 MG/DL See_Comment [Automated [employer]] The system which generated this result transmitted reference range: >39 MG/DL. The reference range was not used to interpret this result as normal/abnormal. RISK RATIO LDL/HDL (test code = 95475-0) 1.31 RATIO See_Comment [Automated message] The system which generated this result transmitted reference range: <3.22 RATIO. The reference range was not used to interpret this result as normal/abnormal. TRIGLYCERIDES (test code = 2571-8) 179 MG/DL See_Comment H [Automated messa ge] The system which generated this result transmitted reference range: <150 MG/DL. The reference range was not used to interpret this result as normal/abnormal. ALBUMIN (test code = 1751-7) 4.6 G/DL See_Comment [Automated messa ge] The system which generated this result transmitted reference range: 3.5-5.2 G/DL. The reference range was not used to interpret this result as normal/abnormal. ALKALINE PHOSPHATASE (test code = 6768-6) 84 U/L See_Comment [Automated message] The system which generated this result transmitted reference range: 40-142 U/L. The reference range was not used to interpret this result as normal/abnormal. BILIRUBIN, TOTAL (test code = 1975-2) 0.4 MG/DL See_Comment [Automated messa ge] The system which generated this result transmitted reference range: <=1.2 MG/DL. The reference range was not used to interpret this result as normal/abnormal. BUN (test code = 3094-0) 25 MG/DL See_Comment H [Automated messa ge] The system which generated this result transmitted reference range: 8-23 MG/DL. The reference range was not used to interpret this result as normal/abnormal. CALCIUM (test code = 66863-1) 10.0 MG/DL See_Comment [Automated messa ge] The system which generated this result transmitted reference range: 8.5-10.5 MG/DL. The reference range was not used to interpret this result as normal/abnormal. CALC A/G RATIO (test code = 1759-0) 1.6 RATIO See_Comment [Automated messa ge] The system which generated this result transmitted reference range: 1.0-2.6 RATIO. The reference range was not used to interpret this result as normal/abnormal. CALC BUN/CREAT (test code = 3097-3) 18 RATIO See_Comment [Automated messa ge] The system which generated this result transmitted reference range: 6-28 RATIO. The reference range was not used to interpret this result as normal/abnormal. CALC GLOBULIN (test code = 74698-8) 2.8 G/DL See_Comment [Automated messa ge] The system which generated this result transmitted reference range: 1.9-3.7 G/DL. The reference range was not used to interpret this result as normal/abnormal. CARBON DIOXIDE (test code = 1963-8) 23 MEQ/L See_Comment [Automated messa ge] The system which generated this result transmitted reference range: 19-31 MEQ/L. The reference range was not used to interpret this result as normal/abnormal. CHLORIDE (test code = 5-0) 103 MEQ/L See_Comment [Automated messa ge] The system which generated this result transmitted reference range: 95-107 MEQ/L. The reference range was not used to interpret this result as normal/abnormal. CREATININE (test code = 2160-0) 1.37 MG/DL See_Comment H [Automated messa ge] The system which generated this result transmitted reference range: 0.60-1.30 MG/DL. The reference range was not used to interpret this result as normal/abnormal. eGFR (2020 CKD-EPI) (test code = 60907-3) 39 ML/MIN/1.73 See_Comment L [Automated message] The system which generated this result transmitted reference range: >60 ML/MIN/1.73. The reference range was not used to interpret this result as normal/abnormal. GLUCOSE (test code = 1558-6) 97 MG/DL See_Comment [Automated messa ge] The system which generated this result transmitted reference range: 70-99 MG/DL. The reference range was not used to interpret this result as normal/abnormal. POTASSIUM (test code = 2823-3) 6.0 MEQ/L See_Comment H [Automated messa ge] The system which generated this result transmitted reference range: 3.5-5.4 MEQ/L. The reference range was not used to interpret this result as normal/abnormal. PROTEIN, TOTAL (test code = 2885-2) 7.4 G/DL See_Comment [Automated messa ge] The system which generated this result transmitted reference range: 6.1-8.3 G/DL. The reference range was not used to interpret this result as normal/abnormal. AST (test code = 1920-8) 17 U/L See_Comment [Automated messa ge] The system which generated this result transmitted reference range: 9-40 U/L. The reference range was not used to interpret this result as normal/abnormal. ALT (test code = 1742-6) 14 U/L See_Comment [Automated messa ge] The system which generated this result transmitted reference range: 5-40 U/L. The reference range was not used to interpret this result as normal/abnormal. SODIUM (test code = 2951-2) 141 MEQ/L See_Comment [Automated messa ge] The system which generated this result transmitted reference range: 133-146 MEQ/L. The reference range was not used to interpret this result as normal/abnormal. FREE T4 (THYROXINE) (test code = 3024-7) 1.69 NG/DL See_Comment [Automated message] The system which generated this result transmitted reference range: 0.80-1.90 NG/DL. The reference range was not used to interpret this result as normal/abnormal. TSH, THIRD GENERATION (test code = 17684-3) 0.644 UIU/ML See_Comment [Automated message] The system which generated this result transmitted reference range: 0.400-4.100 UIU/ML. The reference range was not used to interpret this result as normal/abnormal. HEMOGLOBIN A1c (test code = 4548-4) 6.5 % See_Comment H [Automated messa ge] The system which generated this result transmitted reference range: 4.2-5.6 %. The reference range was not used to interpret this result as normal/abnormal. TSH + FREE T4 [id number] 00:00:00* Test Item Value Reference Range Interpretation Comme nts FREE T4 (THYROXINE) (test code = 3024-7) 1.56 NG/DL See_Comment [Automated message] The system which generated this result transmitted reference range: 0.80-1.90 NG/DL. The reference range was not used to interpret this result as normal/abnormal. TSH, THIRD GENERATION (test code = 52512-7) 1.010 UIU/ML See_Comment [Automated messa ge] The system which generated this result transmitted reference range: 0.400-4.100 UIU/ML. The reference range was not used to interpret this result as normal/abnormal. TSH + FREE T4 [id number] 00:00:00* Test Item Value Reference Range Interpretation Comme nts FREE T4 (THYROXINE) (test code = 3024-7) 0.97 NG/DL See_Comment [Automated message] The system which generated this result transmitted reference range: 0.80-1.90 NG/DL. The reference range was not used to interpret this result as normal/abnormal. TSH, THIRD GENERATION (test code = 22664-1) 15.200 UIU/ML See_Comment H [Automated messa ge] The system which generated this result transmitted reference range: 0.400-4.100 UIU/ML. The reference range was not used to interpret this result as normal/abnormal. CBC W/AUTO [id number] 00:00:00* Test Item Value Reference Range Interpretation Comme nts NUCLEATED RBCS (test code = 91971-6) 0.0 /100 WBC'S See_Comment [Automated [employer] ge] The system which generated this result transmitted reference range: 0.0 /100 WBC'S. The reference range was not used to interpret this result as normal/abnormal. ABSOLUTE EOSINOPHILS (test code = 12650-7) 0.61 K/UL See_Comment H [Automated [employer]] The system which generated this result transmitted reference range: 0.00-0.50 K/UL. The reference range was not used to interpret this result as normal/abnormal. ABSOLUTE LYMPHOCYTES (test code = 86611-4) 3.67 K/UL See_Comment [Automated [employer]] The system which generated this result transmitted reference range: 1.00-4.00 K/UL. The reference range was not used to interpret this result as normal/abnormal. ABSOLUTE MONOCYTES (test code = 60930-0) 0.48 K/UL See_Comment [Automated [employer]] The system which generated this result transmitted reference range: 0.20-1.00 K/UL. The reference range was not used to interpret this result as normal/abnormal. ABSOLUTE NEUTROPHILS (test code = 54397-3) 2.80 K/UL See_Comment [Automated [employer]] The system which generated this result transmitted reference range: 1.50-7.50 K/UL. The reference range was not used to interpret this result as normal/abnormal. BASOPHILS (test code = 68095-3) 0.5 % EOSINOPHILS (test code = 10224-0) 8.0 % HEMATOCRIT (test code = 99005-6) 38.3 % See_Comment [Automated [employer]] The system which generated this result transmitted reference range: 34.0-45.0 %. The reference range was not used to interpret this result as normal/abnormal. HEMOGLOBIN (test code = 718-7) 12.5 G/DL See_Comment [Automated messa ge] The system which generated this result transmitted reference range: 11.5-15.5 G/DL. The reference range was not used to interpret this result as normal/abnormal. LYMPHOCYTES (test code = 29672-5) 48.3 % MCH (test code = 02912-5) 31.2 PG See_Comment [Automated messa ge] The system which generated this result transmitted reference range: 25.0-33.0 PG. The reference range was not used to interpret this result as normal/abnormal. MCHC (test code = 09959-9) 32.6 G/DL See_Comment [Automated messa ge] The system which generated this result transmitted reference range: 31.0-36.0 G/DL. The reference range was not used to interpret this result as normal/abnormal. MCV (test code = 49162-8) 95.5 fL See_Comment [Automated messa ge] The system which generated this result transmitted reference range: 80.0-99.0 fL. The reference range was not used to interpret this result as normal/abnormal. MONOCYTES (test code = 90912-0) 6.3 % NEUTROPHILS (test code = 91959-9) 36.9 % PLATELET COUNT (test code = 13650-7) 309 K/UL See_Comment [Automated messa ge] The system which generated this result transmitted reference range: 130-400 K/UL. The reference range was not used to interpret this result as normal/abnormal. RBC (test code = 02458-6) 4.01 M/UL See_Comment [Automated messa ge] The system which generated this result transmitted reference range: 3.80-5.40 M/UL. The reference range was not used to interpret this result as normal/abnormal. RDW (test code = 35844-9) 16.3 % See_Comment H [Automated messa ge] The system which generated this result transmitted reference range: 11.5-15.0 %. The reference range was not used to interpret this result as normal/abnormal. WBC (test code = 29949-5) 7.6 K/UL See_Comment [Automated messa ge] The system which generated this result transmitted reference range: 3.5-11.0 K/UL. The reference range was not used to interpret this result as normal/abnormal. CBC W/AUTO [id number] 00:00:00* Test Item Value Reference Range Interpretation Comme nts NUCLEATED RBCS (test code = 38482-7) 0.0 /100 WBC'S See_Comment [Automated messa ge] The system which generated this result transmitted reference range: 0.0 /100 WBC'S. The reference range was not used to interpret this result as normal/abnormal. ABSOLUTE EOSINOPHILS (test code = 65751-2) 0.45 K/UL See_Comment [Automated messa ge] The system which generated this result transmitted reference range: 0.00-0.50 K/UL. The reference range was not used to interpret this result as normal/abnormal. ABSOLUTE LYMPHOCYTES (test code = 46025-8) 3.68 K/UL See_Comment [Automated messa ge] The system which generated this result transmitted reference range: 1.00-4.00 K/UL. The reference range was not used to interpret this result as normal/abnormal. ABSOLUTE MONOCYTES (test code = 73057-3) 0.52 K/UL See_Comment [Automated messa ge] The system which generated this result transmitted reference range: 0.20-1.00 K/UL. The reference range was not used to interpret this result as normal/abnormal. ABSOLUTE NEUTROPHILS (test code = 69063-2) 2.22 K/UL See_Comment [Automated messa ge] The system which generated this result transmitted reference range: 1.50-7.50 K/UL. The reference range was not used to interpret this result as normal/abnormal. BASOPHILS (test code = 38115-9) 0.7 % EOSINOPHILS (test code = 92364-3) 6.5 % HEMATOCRIT (test code = 46368-8) 39.4 % See_Comment [Automated messa ge] The system which generated this result transmitted reference range: 34.0-45.0 %. The reference range was not used to interpret this result as normal/abnormal. HEMOGLOBIN (test code = 718-7) 13.0 G/DL See_Comment [Automated messa ge] The system which generated this result transmitted reference range: 11.5-15.5 G/DL. The reference range was not used to interpret this result as normal/abnormal. LYMPHOCYTES (test code = 36094-2) 53.1 % MCH (test code = 37997-4) 30.0 PG See_Comment [Automated messa ge] The system which generated this result transmitted reference range: 25.0-33.0 PG. The reference range was not used to interpret this result as normal/abnormal. MCHC (test code = 46305-9) 33.0 G/DL See_Comment [Automated messa ge] The system which generated this result transmitted reference range: 31.0-36.0 G/DL. The reference range was not used to interpret this result as normal/abnormal. MCV (test code = 70235-2) 90.8 fL See_Comment [Automated messa ge] The system which generated this result transmitted reference range: 80.0-99.0 fL. The reference range was not used to interpret this result as normal/abnormal. MONOCYTES (test code = 88686-6) 7.5 % NEUTROPHILS (test code = 76276-1) 32.1 % PLATELET COUNT (test code = 51900-0) 342 K/UL See_Comment [Automated messa ge] The system which generated this result transmitted reference range: 130-400 K/UL. The reference range was not used to interpret this result as normal/abnormal. RBC (test code = 48307-9) 4.34 M/UL See_Comment [Automated messa ge] The system which generated this result transmitted reference range: 3.80-5.40 M/UL. The reference range was not used to interpret this result as normal/abnormal. RDW (test code = 53249-6) 16.0 % See_Comment H [Automated messa ge] The system which generated this result transmitted reference range: 11.5-15.0 %. The reference range was not used to interpret this result as normal/abnormal. WBC (test code = 00097-0) 6.9 K/UL See_Comment [Automated messa ge] The system which generated this result transmitted reference range: 3.5-11.0 K/UL. The reference range was not used to interpret this result as normal/abnormal.
[2024-08-03 14:36] LABS: Absolute Eosinophils 0.2 K/uL (0-0.5); Absolute Lymphocytes (CBC) 2.9 K/uL (0.7-4.9); Absolute Monocytes 0.3 K/uL (0.1-1.3); Absolute Neutrophil 3.5 K/uL (1.8-8.0); Basophils % 0.3 % (0-1.3); Eosinophils % 2.7 % (0-4.4); Hematocrit 39.7 % (36.0-45.0); Hemoglobin 12.5 g/dL (12.0-15.0); Lymphocytes % 41.9 % (15.3-44.8); MCH 29.2 pg (27.0-35.0); MCHC 31.4 g/dL (32.0-36.0); MCV 92.9 fL (80-100); MPV 8.6 fL (7.6-11.3); Monocytes % 4.8 % (3.3-12.3); Neutrophils % 50.3 % (41.7-73.7); Nucleated RBC Absolute Count 0.1 (0-0); Nucleated Red Blood Cells % 0.8 % (0-0); Platelets 263 thou/uL (152-406); RBC Red Blood Cell Count 4.27 M/uL (3.86-4.86)
[2024-08-03 14:49] LABS: PT Prothrombin Time 12.3 SECONDS (9.4-12.5); Protime INR 1.1
[2024-08-03 14:51] LABS: ALT/SGPT 19 U/L (13-56); AST/SGOT 15 U/L (15-37); Albumin 3.4 g/dL (3.4-5.0); Albumin/Globulin Ratio 0.7 (1.1-1.8); Alkaline Phosphatase 83 U/L (45-117); Anion Gap 10.4 mEq/L (5.0-15.0); BUN Blood Urea Nitrogen 29 mg/dL (7-18); Bicarbonate 23 mEq/L (21-32); Bilirubin Direct < 0.2 mg/dL (0-0.2); Bilirubin Indirect, Calculated 0.2 mg/dL (0.2-0.8); Bilirubin Total 0.4 mg/dL (0.2-1.0); Globulin 4.7 g/dL (2.3-3.5); Glomerular Filtration Rate 34 ml/min (=/>90); Glucose Level 114 mg/dL (74-106); NT PRO-BNP 264 pg/mL (<450); Potassium 4.4 mEq/L (3.5-5.1); Protein, Total 8.1 g/dL (6.4-8.2); Sodium Level 136 mEq/L (136-145); Troponin High Sensitivity 9.6 pg/mL (<58.9)
[2024-08-03 15:00] LABS: SARS-CoV-2 Antigen CONTROL BLUE LINE VIS/BG OK; SARS-CoV-2 Antigen Rapid Res Negative (Negative)
--- NOTE | 2024-08-03 15:46 | RAD REPORT ---
EXAMINATION: ONE VIEW CHEST XR CLINICAL INDICATION: Female, 79 years old. [facility] COPD Bed Name: 16 TECHNIQUE: Frontal chest projection is submitted. Examination is limited by patient positioning and t echnique. COMPARISON: 11/09/2020 FINDINGS: The lungs are well inflated and clear. No pneumothorax or sizable effusion. The heart is normal in s ize. IMPRESSION: No acute intrathoracic abnormalities.
--- NOTE | 2024-08-03 16:41 | ER ---
Nurse's Notes [facility] Name: Kathy Norris Age: 79 yrs Sex: Female : 1945 Arrival Date: 08/03/2024 Time: 13:46 Bed 16 Private MD: Diagnosis: COPD/ Chronic obstructive pulmonary disease with (acute) exacerbation Presentation: 08/03 14:03 Chief complaint: Patient states: SOB and chest congestion x1week. Coronavirus screen: rs5 At this time, the client does not indicate any symptoms associated with coronavirus-19. Ebola Screen: No symptoms or risks identified at this time. Initial Sepsis Screen: Does the patient meet any 2 criteria? No. Patient's initial sepsis screen is negative. Does the patient have a suspected source of infection? No. Patient's initial sepsis screen is negative. Risk Assessment: Do you want to hurt yourself or someone else? Patient reports no desire to harm self or others. Onset of symptoms was August 03, 2024. 14:03 Method Of Arrival: Wheelchair rs5 14:03 Acuity: MEDHAT 3 rs5 Triage Assessment: 14:04 General: Appears uncomfortable, Behavior is calm, cooperative. Pain: Complains of pain rs5 in chest Pain currently is 4 out of 10 on a pain scale. Quality of pain is described as aching, Is continuous. Respiratory: Reports shortness of breath cough that is Onset: The symptoms/episode began/occurred x1 week, the patient has mild shortness of breath. Historical: - Allergies: 14:04 Iodine; rs5 - PMHx: 14:04 Hypertensive disorder; Hypercholesterolemia; Diabetes mellitus; "thyroid issues:; rs5 - PSHx: 14:04 Cholecystectomy; rs5 - Immunization history:: Adult Immunizations up to date. - Infectious Disease History:: Denies. - Social history:: Smoking status: Patient denies any tobacco usage or history of. Screenin:35 [facility] ED Fall Risk Assessment (Adult) History of falling in the last 3 months, me1 including since admission No falls in past 3 months (0 pts) Confusion or Disorientation No (0 pts) Intoxicated or Sedated No (0 pts) Impaired Gait No (0 pts) Mobility Assist Device Used No (0 pt) Altered Elimination No (0 pt) Score/Fall Risk Level 0 - 2 = Low Risk Maintained a safe environment, Provided non-skid footwear, Hourly rounding (assess needs \\T\\ fall precautionary measures) done. Abuse screen: Denies threats or abuse. Nutritional screening: No deficits noted. Tuberculosis screening: No symptoms or risk factors identified. Assessment: 14:35 General: Appears uncomfortable, ill, well groomed, well developed, well nourished, me1 Behavior is calm, cooperative, appropriate for age, Reports Cough, congestion, body aches and SOB x 1 week. Pain: Denies pain. Neuro: Level of Consciousness is awake, alert, obeys commands, Oriented to person, place, time, situation, Appropriate for age. Cardiovascular: Rhythm is sinus rhythm. Respiratory: Airway is patent Respiratory effort is even, labored, Respiratory pattern is regular, tachypnea Breath sounds with wheezes bilaterally. Respiratory: Reports shortness of breath cough that is. GI: No signs and/or symptoms were reported involving the gastrointestinal system. : No signs and/or symptoms were reported regarding the genitourinary system. EENT: No signs and/or symptoms were reported regarding the EENT system. Derm: Skin is intact, is healthy with good turgor, Skin is pink, warm \\T\\ dry. Musculoskeletal: No signs and/or symptoms reported regarding the musculoskeletal system. Vital Signs: 14:03 BP 146 / 90; Pulse 94; Resp 19; Temp 98(O); Pulse Ox 96% on R/A; rs5 14:38 BP 122 / 86; Pulse 89; Resp 23; Pulse Ox 97% on R/A; me1 15:00 BP 116 / 67; Pulse 83; Resp 12; Pulse Ox 96% on R/A; me1 16:00 BP 100 / 82; Pulse 87; Resp 18; Temp 98.1; Pulse Ox 96% on R/A; me1 17:00 BP 114 / 89; Pulse 99; Resp 18; Temp 98.4; Pulse Ox 96% ; me1 ED Course: 13:50 Patient arrived in ED. ra3 13:55 Ilsa Chambers MD is Attending Physician. gb1 13:57 Candice Mullen, RN is Primary Nurse. me1 13:57 Arm band placed on Patient placed in an exam room, on a stretcher. ll1 14:04 Triage completed. rs5 14:22 Basic Metabolic Panel Sent. me1 14:22 CBC with Diff Sent. me1 14:22 LFT's Sent. me1 14:22 NT PRO-BNP Sent. me1 14:22 Troponin HS Sent. me1 14:22 PT-INR Sent. me1 14:22 SARS RAPID Sent. me1 14:22 Initial lab(s) drawn, by me, sent to lab. COVID swab sent to lab. Inserted saline lock: me1 22 gauge in left antecubital area, using aseptic technique. Blood collected. Flushed with 10 mL NS. 14:35 Client placed on continuous cardiac and pulse oximetry monitoring. NIBP monitoring me1 applied. athletic monitor on. Pulse ox on. NIBP on. 14:35 Patient has correct armband on for positive identification. Bed in low position. Call me1 light in reach. Side rails up X 1. Provided Education on: POC. Verbalized understanding. . 14:35 EKG done, by ED staff, reviewed by Ilsa Chambers MD. me1 14:35 No provider procedures requiring assistance completed. me1 14:49 XRAY Chest (1 view) In Process Unspecified. EDMS 17:10 IV discontinued, intact, bleeding controlled, No redness/swelling at site. Pressure me1 dressing applied. Administered Medications: No medications were administered Medication: 14:35 VIS not applicable for this client. me1 Outcome: 16:40 Discharge ordered by . gb1 17:10 Discharged to home ambulatory, me1 17:10 Condition: stable 17:10 Discharge instructions given to patient, Instructed on discharge instructions, follow up and referral plans. medication usage, Demonstrated understanding of instructions, follow-up care, medications, Prescriptions given X 1, 17:10 Patient left the ED. me1 Signatures: Dispatcher [employer] EDMS Selvin Hart RN RN ll1 Prakash Winkler RN RN rs5 Candice Mullen RN RN me1 Ilsa Chambers MD MD gb1 Monique Skinner ra3
--- NOTE | 2024-08-03 16:41 | EDPHYS ---
Physician Documentation [facility] Name: Kathy Najera Age: 79 yrs Sex: Female : 1945 Arrival Date: 08/03/2024 Time: 13:46 Bed 16 Private MD: ED Physician Ilsa Chambers HPI: 08/03 16:46 This 79 yrs old Female presents to ER via Wheelchair with complaints of gb1 Breathing Difficulty, Chest Congestion. 16:46 Ms. najera is an 79-year-old female that has been having chest congestion and wheezing gb1 she has a history of COPD, hypertension, hyperlipidemia, diabetes and thyroid disease. Patient denies any fever and she is been coughing up yellow light green sputum for the last 2 to 3 days. She states that she tested negative for COVID just a few days ago. She denies any sick contacts.. Historical: - Allergies: 14:04 Iodine; rs5 - PMHx: 14:04 Hypertensive disorder; Hypercholesterolemia; Diabetes mellitus; "thyroid issues:; rs5 - PSHx: 14:04 Cholecystectomy; rs5 - Immunization history:: Adult Immunizations up to date. - Infectious Disease History:: Denies. - Social history:: Smoking status: Patient denies any tobacco usage or history of. Exam: 16:46 Constitutional: This is a well developed, well nourished patient who is awake, alert, gb1 and in no acute distress. Head/Face: Normocephalic, atraumatic. Eyes: Pupils equal round and reactive to light, extra-ocular motions intact. Lids and lashes normal. Conjunctiva and sclera are non-icteric and not injected. Cornea within normal limits. Periorbital areas with no swelling, redness, or edema. ENT: Nares patent. No nasal discharge, no septal abnormalities noted. Tympanic membranes are normal and external auditory canals are clear. Oropharynx with no redness, swelling, or masses, exudates, or evidence of obstruction, uvula midline. Mucous membranes moist. Neck: Trachea midline, no thyromegaly or masses palpated, and no cervical lymphadenopathy. Supple, full range of motion without nuchal rigidity, or vertebral point tenderness. No Meningismus. Chest/axilla: Normal chest wall appearance and motion. Nontender with no deformity. No lesions are appreciated. Cardiovascular: Regular rate and rhythm with a normal S1 and S2. No gallops, murmurs, or rubs. Normal PMI, no JVD. No pulse deficits. Respiratory: Lungs have equal breath sounds bilaterally, bilateral upper lobe are wheezing with auscultation and dull to percussion. No rales, rhonchi or wheezes noted. No increased work of breathing, no retractions or nasal flaring. Abdomen/GI: Soft, non-tender, with normal bowel sounds. No distension or tympany. No guarding or rebound. No evidence of tenderness throughout. Back: No spinal tenderness. No costovertebral tenderness. Full range of motion. Skin: Warm, dry with normal turgor. Normal color with no rashes, no lesions, and no evidence of cellulitis. MS/ Extremity: Pulses equal, no cyanosis. Neurovascular intact. Full, normal range of motion. Neuro: Awake and alert, GCS 15, oriented to person, place, time, and situation. Cranial nerves II-XII grossly intact. Motor strength 5/5 in all extremities. Sensory grossly intact. Cerebellar exam normal. Normal gait. Vital Signs: 14:03 BP 146 / 90; Pulse 94; Resp 19; Temp 98(O); Pulse Ox 96% on R/A; rs5 14:38 BP 122 / 86; Pulse 89; Resp 23; Pulse Ox 97% on R/A; me1 15:00 BP 116 / 67; Pulse 83; Resp 12; Pulse Ox 96% on R/A; me1 16:00 BP 100 / 82; Pulse 87; Resp 18; Temp 98.1; Pulse Ox 96% on R/A; me1 17:00 BP 114 / 89; Pulse 99; Resp 18; Temp 98.4; Pulse Ox 96% ; me1 MDM: 13:55 Patient medically screened. gb1 16:46 Differential diagnosis: Anemia asthma, Bronchitis CHF exacerbation, Chronic Obstructive gb1 Pulmonary Disease Myocardial Infarction pneumonia, pulmonary edema, Pulmonary Embolism reactive airway disease, Unstable Angina. Data reviewed: vital signs, nurses notes. ED course: 79-year-old female here with COPD exacerbation is mild. Her pulse ox is 96% on room air and she shows no signs of increased work of breathing or retractions. There is no focal pneumonia on chest x-ray and her EKG today is normal sinus rhythm at 79 bpm read at 1432. Patient's labs are within normal limits and at this time I doubt acute decompensated congestive heart failure or any signs of pulmonary edema on chest x-ray. Patient is alert and at this time clinically improved. I will prescribe her Levaquin due to her history of COPD and diabetes to treat for presumed community-acquired pneumonia. Patient is compliant with this plan of care at discharge and will follow up as instructed with her primary care record within 1 week from emergency department discharge.. 08/03 14:04 Order name: Basic Metabolic Panel; Complete Time: 15:02 08/03 14:04 Order name: CBC with Diff; Complete Time: 16:49 08/03 14:04 Order name: LFT's; Complete Time: 15:02 08/03 14:04 Order name: NT PRO-BNP; Complete Time: 15:02 08/03 14:04 Order name: PT-INR; Complete Time: 15:02 08/03 14:04 Order name: Troponin HS; Complete Time: 15:02 08/03 14:11 Order name: SARS RAPID; Complete Time: 15:02 08/03 16:40 Order name: CBC Smear Scan; Complete Time: 16:49 EDMS 08/03 14:04 Order name: XRAY Chest (1 view); Complete Time: 16:17 08/03 14:04 Order name: Cardiac monitoring; Complete Time: 14:34 08/03 14:04 Order name: EKG - Nurse/Tech; Complete Time: 14:34 08/03 14:04 Order name: IV Saline Lock; Complete Time: 14:21 08/03 14:04 Order name: Labs collected and sent; Complete Time: 14:21 08/03 14:04 Order name: O2 Per Protocol; Complete Time: 14:22 08/03 14:04 Order name: O2 Sat Monitoring; Complete Time: 14:22 gb Administered Medications: No medications were administered Disposition Summary: 08/03/24 16:40 Discharge Ordered Notes: Location: Home gb1 Problem: new gb1 Symptoms: have improved gb1 Condition: Stable gb1 Diagnosis - COPD/ Chronic obstructive pulmonary disease with (acute) exacerbation gb1 Followup: gb1 - With: Private Physician - When: 48 Hours - Reason: Recheck today's complaints Discharge Instructions: - Discharge Summary Sheet gb1 - Chronic Obstructive Pulmonary Disease gb1 Forms: - Medication Reconciliation Form gb1 - Antibiotic Education gb1 - Prescription Opioid Use gb1 - Patient Portal Instructions gb1 - Leadership Thank You Letter gb1 Prescriptions: - levofloxacin 500 mg Oral tablet - take 1 tablet ORAL route once daily for 7 days; 7 tablet; Refills: 0, Product gb1 Selection Permitted Signatures: Dispatcher [employer] Prakash Brown RN RN rs5 Ilsa Chambers MD MD gb1
[2024-08-03 16:46] LABS: Anisocytosis 1+; Blood Morphology Comment NOTED (NOT SEEN); Platelet Estimate ADEQ; White Blood Cell Scan OK (OK)
[2024-08-03 17:31] VITALS: O2SAT 96
[2024-08-03 17:34] VITALS: BP 114/89; TEMP 98.4
--- NOTE | 2024-08-04 16:59 | EKG ---
Test Date: 2024-08-03 Test Time: 14:29:39 Service Car Operator: MEASUREMENT RESULTS: Intervals: Rate: 79 TX: 136 QRSD: 78 QT: 368 QTc: 421 [place]: P: 84 TX: 136 QRS: 55 T: 81 INTERPRETIVE STATEMENTS: Normal sinus rhythm Normal ECG Compared to ECG 06/04/2015 08:08:30 No significant changes Electronically Signed On 08-04-24 16:55:10 CDT by Alexis Maddox
== END 2024-08-03 17:10 | disposition home or self-care (01) ==
LOC: ER 13:46
DX: J44.1 Chronic obstructive pulmonary disease with (acute) exacerbation (principal); I10 Essential (primary) hypertension; E11.9 Type 2 diabetes mellitus without complications; Z11.52 Encounter for screening for COVID-19
CPT/HCPCS: 36415; 71045; 80048; 80076; 83880; 84484; 85025; 85610; 87811; 93005; 99284